=== PATIENT | female | born 1950 | race Caucasian/White ===

== ENCOUNTER 2021-06-15 12:51 | Emergency (ER) | payer MEDICARE, BC ==
[2021-06-15] MEDS ORDERED: Aspirin 81 MG Tab.Chew PO ONE (12:56)
[2021-06-15] MEDS ORDERED: Metoprolol Tartrate 5 MG/5 ML SDV IVPUSH ONE (12:56)
[2021-06-15] MEDS ORDERED: Sodium Chloride 0.9% 10 ML Syringe FLUSH PRN (12:56)
[2021-06-15] MEDS ORDERED: hydrALAZINE 20 MG/ML SDV IVPUSH ONE (12:58)
[2021-06-15 13:39] LABS: PTT,PARTIAL THROMBOPLSTIN TIME 26.6 SEC (24.5-32.8)
[2021-06-15 13:41] LABS: ANION GAP 8.9 meq/L (7-15); CHLORIDE,CL 104 mmol/L (98-107); SODIUM,NA 136 mmol/L (136-145)
--- NOTE | 2021-06-15 14:01 | EDM.PDOC ---
ED HPI GENERAL MEDICAL PROBLEM - General Chief Complaint: Cardiovascular Problem Stated Complaint: HTN, lightheaded, nausea Time Seen by Provider: 06/15/21 12:55 Source of Information: Reports: Patient - History of Present Illness INITIAL COMMENTS - FREE TEXT/NARRATIVE: Leanna is a 70 y/o female who comes to the ER with complaints of headache, dizziness, and overall not feeling well. Just started to feel this way over the last 2 days. Attempted to get into [facility] but it was closing. Has a hard time exactly explaining sx, but just overall "feels off." - Related Data Allergies Allergy/AdvReac Type Severity Reaction Status Date / Time No Known Drug Allergies Allergy Cannot Verified 12/19/18 00:03 Remember Home Meds: Home Meds Xx Tumeric 300 mg PO DAILY 04/29/17 [History] Xx Vitamine B 12 200 PO DAILY 04/29/17 [History] Xxmagnesium 250 mg PO DAILY 04/29/17 [History] Zinc Gluconate [Zinc] 30 mg PO DAILY 04/29/17 [History] lisinopriL [Lisinopril] 20 mg PO DAILY #30 tablet 06/15/21 [Rx] Past Medical History HEENT History: Reports: Impaired Vision, Other (See Below) Other HEENT History: glasses Respiratory History: Reports: None, Other (See Below) Other Respiratory History: smoker x 40 years Gastrointestinal History: Reports: Helicobacter Pylori - Infectious Disease History Infectious Disease History: Reports: Chicken Pox, Helicobacter Pylori, Measles, Mumps - Past Surgical History Respiratory Surgical History: Reports: None GI Surgical History: Reports: Appendectomy Musculoskeletal Surgical History: Reports: Carpal Tunnel, Other (See Below) Other Musculoskeletal Surgeries/Procedures:: trigger finger surgery Social & Family History - Caffeine Use Caffeine Use: Reports: Coffee, Tea ED ROS GENERAL - Review of Systems Review Of Systems: See Below Constitutional: Reports: Weakness HEENT: Reports: No Symptoms Respiratory: Reports: Cough Cardiovascular: Reports: No Symptoms Endocrine: Reports: No Symptoms GI/Abdominal: Reports: No Symptoms : Reports: No Symptoms Musculoskeletal: Reports: No Symptoms Skin: Reports: No Symptoms Neurological: Reports: Dizziness, Headache Psychiatric: Reports: No Symptoms Hematologic/Lymphatic: Reports: No Symptoms Immunologic: Reports: No Symptoms ED EXAM, GENERAL - Physical Exam Exam: See Below General Appearance: Alert, WD/WN, No Apparent Distress (Elderly female.) Eye Exam: Bilateral Eye: Abnormal EOM, Nystagmus (Negative), PERRL Ears: Normal External Exam, Normal Canal, Hearing Grossly Normal, Normal TMs Nose: Normal Inspection, Normal Mucosa Throat/Mouth: Normal Inspection, Normal Lips, Normal Teeth, Normal Oropharynx, Normal Voice Head: Atraumatic, Normocephalic Neck: Normal Inspection, Supple, Non-Tender Respiratory/Chest: No Respiratory Distress, Lungs Clear, Normal Breath Sounds, Chest Non-Tender Cardiovascular: Normal Peripheral Pulses, Regular Rate, Rhythm, No Edema, No JVD GI/Abdominal: Normal Bowel Sounds, Soft, Non-Tender (Female) Exam: Deferred Rectal (Female) Exam: Deferred Back Exam: Normal Inspection Extremities: Normal Inspection, Normal Range of Motion, No Pedal Edema, Normal Capillary Refill Neurological: Alert, Oriented, CN II-XII Intact, Normal Cognition, No Motor/Sensory Deficits Psychiatric: Normal Affect, Normal Mood Skin Exam: Warm, Dry, Intact, Normal Color #1 Interpretation EKG Date: 06/15/21 Time: 13:23 Rhythm: NSR Rate (Beats/Min): 64 [place]: Normal P-Wave: Present QRS: Normal ST-T: Normal QT: Normal EKG Interpretation Comments: Normal Sinus Rhythm Course - Vital Signs Text/Narrative:: 1255 The patient was seen by the [facility] [employer]. Labs were done. Her BP was in the 200s/70s on arrival. She was given ASA 324mg po x 1 dose and Hydralyzine 10mg IVP. 1330 BP trending down. Labs pending. 1405 Labs reviewed, CBC neg, CMP neg, Trop neg. EKG=NSR. Patient feeling much better now. Favor uncontrolled HTN as differential. Will obtain UA prior to discharge. Plan ELENA-Lisinopril and further management with PCP. - Orders/Labs/Meds Orders: Active Orders 24 hr Category Date Time Status EKG Documentation Completion [RC] ASDIRECTED Care 06/15/21 12:56 Ordered EKG Documentation Completion [RC] STAT Care 06/15/21 12:56 Ordered UA RFX CHELSY AND CULT IF INDIC [URIN] Stat Lab 06/15/21 12:56 Ordered Sodium Chloride 0.9% [Saline Flush] Med 06/15/21 12:56 Ordered 10 ml FLUSH ASDIRECTED PRN Saline Lock Insert [OM.PC] Stat Oth 06/15/21 12:56 Ordered EKG 12 Lead [EK] Stat Ther 06/15/21 12:56 Ordered Medication Orders Sodium Chloride (Sodium Chloride 0.9% 10 Ml Syringe) 10 ml FLUSH ASDIRECTED PRN PRN Reason: Keep Vein Open Labs: Laboratory Tests 06/15/21 06/15/21 06/15/21 Range/Units 13:05 13:05 13:05 WBC 7.6 (4.0-10.2) K/uL RBC 4.26 (3.77-5.09) M/uL Hgb 13.2 (11.7-15.5) g/dL Hct 40.3 (34.0-46.0) % MCV 94.6 (84.0-98.0) fL MCH 31.0 (28.2-33.3) pg MCHC 32.8 (31.7-36.0) g/dL RDW 13.3 (11.2-14.1) % Plt Count 337 (150-350) K/uL Neut % (Auto) 57.4 (45.0-80.0) % Lymph % (Auto) 29.8 (10.0-50.0) % [place] % (Auto) 9.1 (2.0-14.0) % Eos % (Auto) 3.3 (0.0-5.0) % Baso % (Auto) 0.4 (0.0-2.0) % Neut # (Auto) 4.38 (1.40-7.00) K/uL Lymph # (Auto) 2.27 (0.50-3.50) K/uL [place] # (Auto) 0.69 (0.00-1.00) K/uL Eos # (Auto) 0.25 (0.00-0.50) K/uL Baso # (Auto) 0.03 (0.00-0.20) K/uL PT 10.4 (9.5-12.0) SEC INR 1.0 APTT 26.6 (24.5-32.8) SEC Sodium 136 (136-145) mmol/L Potassium 4.0 (3.5-5.1) mmol/L Chloride 104 (98-107) mmol/L Carbon Dioxide 23.1 (21.0-32.0) mmol/L Anion Gap 8.9 (7-15) meq/L BUN 13 (7-18) mg/dL Creatinine 0.80 (0.51-1.17) mg/dL Est Cr Clr Drug Dosing 62.65 mL/min Estimated GFR (MDRD) > 60 mL/min Glucose 111 H (70-99) mg/dL Calcium 8.5 (8.5-10.1) mg/dL Magnesium 2.1 (1.8-2.4) mg/dL Total Bilirubin 0.2 (0.2-1.0) mg/dL AST 13 L (15-37) U/L ALT 22 (12-78) U/L Alkaline Phosphatase 72 (46-116) IU/L Troponin I High Sens 4 (<=51) ng/L Total Protein 7.1 (6.4-8.2) g/dL Albumin 3.6 (3.4-5.0) g/dL TSH, Ultra Sensitive 2.112 (0.358-3.740) mIU/mL Meds: Medications Generic Name Dose Route Start Last Admin Trade Name Freq PRN Reason Stop Dose Admin Sodium Chloride 10 ml 06/15/21 12:56 Sodium Chloride 0.9% 10 Ml Syringe FLUSH ASDIRECTED PRN Keep Vein Open Discontinued Medications Generic Name Dose Route Start Last Admin Trade Name Freq PRN Reason Stop Dose Admin Aspirin 324 mg 06/15/21 12:56 Aspirin 81 Mg Tab.Chew PO 06/15/21 12:57 ONETIME ONE Hydralazine HCl 10 mg 06/15/21 12:58 06/15/21 13:08 Hydralazine 20 Mg/Ml Sdv IVPUSH 06/15/21 12:59 10 mg ONETIME ONE Administration Metoprolol Tartrate 5 mg 06/15/21 12:56 Metoprolol Tartrate 5 Mg/5 Ml Sdv IVPUSH 06/15/21 12:57 ONETIME ONE Departure - Departure Time of Disposition: 14:28 Disposition: Home, Self-Care 01 Condition: Good Clinical Impression: Tobacco use Hypertension Qualifiers: Hypertension type: unspecified Qualified Code(s): I10 - Essential (primary) hypertension Prescriptions: lisinopriL [Lisinopril] 20 mg PO DAILY #30 tablet Instructions: Health Risks of Smoking, Hypertension, Adult, Steps to Quit Smoking Referrals: PCP,None [Primary Care Provider] - Additional Instructions: -Lisinopril 20mg oral daily #30(Rx) -Make an appt to see your PCP in 1-2 weeks for BP recheck and further med refills -Consider stopping smoking. Thi swill help decrease your blood pressure. -Increasing your daily exercise will also be beneficial. -Return to the ER for any other concerns - Problem List & Annotations (1) Hypertension SNOMED Code(s): 32210992 Code(s): I10 - ESSENTIAL (PRIMARY) HYPERTENSION Status: Acute Current Visit: Yes Annotation/Comment:: Labs negative. Started on Lisinopril 20mg po qd and will have patient establish care with a PCP for further managment. Qualifiers: Hypertension type: unspecified Qualified Code(s): I10 - Essential (primary) hypertension (2) Tobacco use SNOMED Code(s): 169313752 Code(s): Z72.0 - TOBACCO USE Status: Acute Current Visit: Yes Annotation/Comment:: Cessation encouraged. - Problem List Review Problem List Initiated/Reviewed/Updated: Yes - My Orders Last 24 Hours: My Active Orders 06/15/21 12:56 EKG Documentation Completion [RC] ASDIRECTED EKG Documentation Completion [RC] STAT UA RFX CHELSY AND CULT IF INDIC [URIN] Stat Sodium Chloride 0.9% [Saline Flush] 10 ml FLUSH ASDIRECTED PRN Saline Lock Insert [OM.PC] Stat EKG 12 Lead [EK] Stat - Assessment/Plan Last 24 Hours: My Active Orders 06/15/21 12:56 EKG Documentation Completion [RC] ASDIRECTED EKG Documentation Completion [RC] STAT UA RFX CHELSY AND CULT IF INDIC [URIN] Stat Sodium Chloride 0.9% [Saline Flush] 10 ml FLUSH ASDIRECTED PRN Saline Lock Insert [OM.PC] Stat EKG 12 Lead [EK] Stat Plan: See above
[2021-06-15 14:28] VITALS: BP 164/79; PULSE 64
== END 2021-06-15 14:55 | disposition home or self-care (01) ==
LOC: LL.ED 12:51
DX: I10 Essential (primary) hypertension (principal); Z72.0 Tobacco use; Z79.899 Other long term (current) drug therapy; Z87.891 Personal history of nicotine dependence
CPT/HCPCS: 36415; 80053; 81003; 83735; 84443; 84484; 85025; 85610; 85730; 93005; 93010; 96374; 99284; 99284-25; J0360

== ENCOUNTER 2023-10-12 14:28 | Emergency (ER) | payer BC, MEDICARE ==
[2023-10-12 15:11] LABS: BASOPHILS ABSOLUTE AUTO 0.03 K/uL (0.00-0.20); BASOPHILS PERCENT AUTO 0.3 % (0.0-2.0); EOSINOPHILS ABSOLUTE AUTO 0.09 K/uL (0.00-0.50); EOSINOPHILS PERCENT AUTO 0.9 % (0.0-5.0); HEMATOCRIT 39.4 % (34.0-46.0); LYMPHOCYTES ABSOLUTE AUTO 1.31 K/uL (0.50-3.50); MONOCYTES PERCENT AUTO 6.9 % (2.0-14.0); NEUTROPHILS ABSOLUTE AUTO 7.97 K/uL (1.40-7.00); NEUTROPHILS PERCENT AUTO 78.9 % (45.0-80.0); PLATELET COUNT,PLT 386 K/uL (150-350); RED BLOOD CELL COUNT 4.19 M/uL (3.77-5.09); RED CELL DISTRIBUTION WIDTH 13.7 % (11.2-14.1); WHITE BLOOD CELL COUNT,WBC 10.1 K/uL (4.0-10.2)
[2023-10-12 15:27] LABS: PROTHROMBIN TIME 9.8 SEC (9.0-11.1)
[2023-10-12 15:35] LABS: ALANINE AMINOTRANSFERASE,ALT 21 U/L (12-78); ALBUMIN 3.7 g/dL (3.4-5.0); ALKALINE PHOSPHATASE 76 IU/L (46-116); ANION GAP 9.3 meq/L (7-15); ASPARTATE AMNIOTRANSFERASE,AST 11 U/L (15-37); BILIRUBIN TOTAL 0.3 mg/dL (0.2-1.0); BLOOD UREA NITROGEN,BUN 19 mg/dL (7-18); CALCIUM 9.5 mg/dL (8.5-10.1); CARBON DIOXIDE,CO2 24.7 mmol/L (21.0-32.0); CHLORIDE,CL 103 mmol/L (98-107); CREATININE 1.07 mg/dL (0.51-1.17); GLUCOSE RANDOM 160 mg/dL (70-99); POTASSIUM,K 4.2 mmol/L (3.5-5.1); PROTEIN TOTAL,TP 7.7 g/dL (6.4-8.2); SODIUM,NA 137 mmol/L (136-145)
[2023-10-12 15:46] LABS: ESTIMATED GFR 56 mL/min (>=60)
[2023-10-12 16:13] VITALS: BP 137/82; PULSE 45
[2023-10-12 17:02] LABS: CORONAVIRUS COVID-19 NAA NEGATIVE (NEGATIVE); INFLUENZA A NAA NEGATIVE (NEGATIVE); INFLUENZA B NAA NEGATIVE (NEGATIVE); RESPIRATORY SYNCYTIAL VIR NAA NEGATIVE (NEGATIVE)
== END 2023-10-12 17:00 | disposition home or self-care (01) ==
LOC: LL.ED 14:28
DX: R55 Syncope and collapse (principal); Z79.899 Other long term (current) drug therapy
CPT/HCPCS: 0241U; 36415; 71045; 80053; 84484; 85025; 85610; 93005; 93010; 99284